=== PATIENT | female | born 1940 | race Caucasian/White ===

== ENCOUNTER 2018-07-10 07:46 | Emergency (ER) | payer MEDICARE, BC ==
--- NOTE | 2018-07-10 07:55 | EDM.PDOC ---
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 She states she was fine at 4 AM and noticed his first symptoms when she awoke at approximately 5:30 AM patient is currently on Plavix patient denies chest pain shortness of breath trauma or other concern Review of systems: As per history of present illness and below otherwise all systems reviewed and negative. Past medical history: As per history of present illness and as reviewed below otherwise noncontributory. Surgical history: As per history of present illness and as reviewed below otherwise noncontributory. Social history: No reported history of drug or alcohol abuse. Family history: As per history of present illness and as reviewed below otherwise noncontributory. Physical exam: HEENT: Atraumatic, normocephalic, pupils reactive, negative for conjunctival pallor or scleral icterus, mucous membranes moist, throat clear, neck supple, nontender, trachea midline. Lungs: Clear to auscultation, breath sounds equal bilaterally, chest nontender. Heart: S1S2, regular, negative for clicks, rubs, or JVD. Abdomen: Soft, nondistended, nontender. Negative for masses or hepatosplenomegaly. Negative for costovertebral tenderness. Pelvis: Stable nontender. Genitourinary: Deferred. Rectal: Deferred. Extremities: Atraumatic, negative for cords or calf pain. Neurovascular unremarkable. Neuro: Awake, alert, oriented. Patient is a dense paralysis left upper extremity and 4 out of 5 muscle strength in her left lower extremity with decreased sensory left upper and lower.. Diagnostics: CBC CMP troponin PT/INR chest x-ray EKG CT brain Therapeutics: IV O2 monitor Impression: #1 acute CVA Definitive disposition and diagnosis as appropriate pending reevaluation and review of above. - Related Data Allergies Allergy/AdvReac Type Severity Reaction Status Date / Time olmesartan medoxomil Allergy Arrhythmias Verified 05/18/14 10:58 [From Benicar] phenobarbital Allergy Tachycardia Verified 05/18/14 10:58 tramadol Allergy Cannot Verified 05/18/14 10:58 Remember Home Meds: Home Meds Aspirin [Ecotrin] 1 tab PO DAILY 05/18/14 [History] Cholecalciferol (Vitamin D3) [Vitamin D-3] 1 tab PO DAILY 05/18/14 [History] Clopidogrel Bisulfate [Clopidogrel] 1 tab PO DAILY 05/18/14 [History] Cyanocobalamin (Vitamin B-12) [Vitamin B-12] 1 tab PO DAILY 05/18/14 [History] Cyclobenzaprine HCl 1 tab PO ASDIRECTED PRN 05/18/14 [History] Flaxseed Oil [Flaxseed] 1 tab PO DAILY 05/18/14 [History] Hydrocodone/Acetaminophen [Hydrocodon-Acetaminophen 5-325] 1 tab PO ASDIRECTED PRN 05/18/14 [History] Krill/Om-3/DHA/EPA/Phospho/Ast [Krill Oil 1,000 mg Softgel] 1 tab PO DAILY 05/18 [History] Levothyroxine Sodium 1 tab PO ACBRK 05/18/14 [History] Magnesium 1 tab PO DAILY 05/18/14 [History] Multivitamin [Multi-Vitamin Daily] 1 tab PO DAILY 05/18/14 [History] Potassium Gluconate [Potassium] 99 mg PO DAILY 05/18/14 [History] Pravastatin [Pravachol] 1 tab PO DAILY 05/18/14 [History] Ubidecarenone [Co Q-10] 1 tab PO DAILY 05/18/14 [History] Valsartan [Diovan] 1 tab PO BRK 05/18/14 [History] amLODIPine [Norvasc] 1 tab PO BRK 05/18/14 [History] metFORMIN HCl [Metformin HCl ER] 1 tab PO ACDINNER 05/18/14 [History] ED ROS GENERAL - Review of Systems Review Of Systems: ROS reveals no pertinent complaints other than HPI. ED EXAM, GENERAL - Physical Exam Exam: See Below (See dictation) Departure - Departure Time of Disposition: 07:54 Disposition: DC/Tfer to Acute Hospital 02 Condition: Serious Clinical Impression: CVA (cerebral vascular accident) - Discharge Information Additional Instructions: []
--- NOTE | 2018-07-10 08:12 | CT ---
HISTORY: Stroke. TECHNIQUE: CT brain without contrast. COMPARISON: None. FINDINGS: No acute intracranial hemorrhage. No extra-axial collection. No mass effect or midline shift. Few scattered predominantly cortical calcifications throughout both hemispheres. Mild prominence of the sulci. Ventricular system is normal in caliber morphology. Cisterns are patent. Intracranial and extracranial arterial calcifications. Calvarium is intact. Imaged paranasal sinuses and mastoid air cells are clear. IMPRESSION: No acute intracranial abnormality. Please note that all CT scans at this facility use dose modulation, iterative reconstruction, and/or weight-based dosing when appropriate to reduce radiation dose to as low as reasonably achievable. Dictated by Dick Pelletier MD @ Jul 10 2018 8:05AM Signed by Dr. Dick Pelletier @ Jul 10 2018 8:11AM
[2018-07-10] MEDS ORDERED: Sodium Chloride 0.9% 2.5 ML Syringe FLUSH PRN (08:30)
[2018-07-10] MEDS ORDERED: Sodium Chloride 0.9% 10 ML SDV IV PRN (08:30)
[2018-07-10] MEDS ORDERED: Sodium Chloride 0.9% 10 ML Syringe FLUSH PRN (08:30)
[2018-07-10 09:12] LABS: CHLORIDE,CL 99 mmol/L (98-107); SODIUM,NA 132 mmol/L (136-145)
[2018-07-10 09:19] VITALS: BP 143/62
--- NOTE | 2018-07-10 09:22 | CR ---
EXAMINATION: Portable chest radiograph. HISTORY: Left arm paralysis. FINDINGS: The trachea is midline. There is a prominent of the right suprahilar region with adjacent 3.3 cm mass. The heart is otherwise normal in size. Mild interstitial prominence. No pleural effusion or pneumothorax. Osseous structures appear unremarkable. IMPRESSION: 1. There is a 3.3 cm right suprahilar mass with likely associated right hilar lymphadenopathy.
== END 2018-07-10 09:05 ==
LOC: MW.ED 07:46
DX: I63.9 Cerebral infarction, unspecified (principal); Z79.82 Long term (current) use of aspirin; Z79.899 Other long term (current) drug therapy; Z88.6 Allergy status to analgesic agent; Z88.8 Allergy status to other drugs, medicaments and biological substances
CPT/HCPCS: 36415; 70450; 70450-26; 71045; 71045-26; 80053; 81001; 84443; 84484; 85025; 85610; 85730; 87086; 93005; 99285-25

== ENCOUNTER 2018-08-22 14:37 | Observation (INO) | payer MEDICARE, BC ==
[2018-08-22] MEDS ORDERED: Sodium Chloride 0.9% 1,000 ML IV ONE (16:27)
--- NOTE | 2018-08-22 16:52 | EDM.PDOC ---
ED HPI GENERAL MEDICAL PROBLEM - General Chief Complaint: General Stated Complaint: NOSE BLEEDS X 1 WEEK, WEAKNESS Time Seen by Provider: 08/22/18 15:40 Source of Information: Reports: Patient History Limitations: Reports: No Limitations - History of Present Illness INITIAL COMMENTS - FREE TEXT/NARRATIVE: HISTORY AND PHYSICAL: History of present illness: Patient is an 78-year-old female presents to the ED today with concern of weakness following to nosebleed episodes. Patient states she had a nosebleed episode yesterday which lasted 4-6 hours before she got it to stop. Patient states there was quite a bit of blood loss yesterday. Patient states she had another episode of a nosebleed this morning that lasted about an hour. Patient states following these episodes she feels tired and run down. Patient states she was recently diagnosed with lung cancer but has not started treatment for chemotherapy for this. Patient states she supposed to start chemotherapy next week. Patient states she was on Xarelto for a stroke that occurred back in June. Patient states she was having issues with nosebleeds so her primary care at taken her office of the Xarelto in July. Patient denies any other symptoms or concerns at this time. Patient denies fever, chills, chest pain, shortness of breath, or cough. Denies headache, neck stiff ness, change in vision, syncope, or near syncope. Denies nausea, vomiting, abdominal pain, diarrhea, constipation, or dysuria. Has not noted any blood in urine or stool. Patient has been eating and drinking appropriately. Review of systems: As per history of present illness and below otherwise all systems reviewed and negative. Past medical history: As per history of present illness and as reviewed below otherwise noncontributory. Surgical history: As per history of present illness and as reviewed below otherwise noncontributory. Social history: See social history for further information Family history: As per history of present illness and as reviewed below otherwise noncontributory. Physical exam: General: Patient is alert, oriented, and in no acute distress. Patient sitting comfortably on exam table. HEENT: Atraumatic, normocephalic, pupils equal and reactive bilaterally, negative for conjunctival pallor or scleral icterus, mucous membranes dry, TMs normal bilaterally, throat clear, neck supple, nontender, trachea midline. No drooling or trismus noted. No meningeal signs. No hot potato voice noted. Lungs: Clear to auscultation, breath sounds equal bilaterally, chest nontender. Heart: S1S2, regular rate and rhythm without overt murmur Abdomen: Soft, nondistended, nontender. Negative for masses or hepatosplenomegaly. Negative for costovertebral tenderness. Pelvis: Stable nontender. Genitourinary: Deferred. Rectal: Deferred. Skin: Intact, warm, dry. No lesions or rashes noted. Patient does appear pale. Extremities: Atraumatic, negative for cords or calf pain. Neurovascular unremarkable. Neuro: Awake, alert, oriented. Cranial nerves II through XII unremarkable. Cerebellum unremarkable. Motor and sensory unremarkable throughout. Exam nonfocal. Notes: Dr. Carter verbally involved in patient care. Patient does have an elevated leukocytosis count but has had elevations of this in the past no labwork. Dr. Arnold was consulted on patient and will admit to observation. Voices understanding and is agreeable to plan of care. Denies any further questions or concerns at this time. Diagnostics: CBC, CMP, UA, chest x-ray, PT/INR, PTT, type and screen/cross Therapeutics: Saline, 1 unit packed RBC Impression: Symptomatic anemia Hyponatremia Leukocytosis Plan: 1. Admit to observation to Dr. Arnold Definitive disposition and diagnosis as appropriate pending reevaluation and review of above. headache Pain Score (Numeric/FACES): 5 - Related Data Allergies Allergy/AdvReac Type Severity Reaction Status Date / Time olmesartan medoxomil Allergy Arrhythmias Verified 07/10/18 08:19 [From Benicar] phenobarbital Allergy Tachycardia Verified 07/10/18 08:19 quinapril Allergy Cough Verified 08/22/18 15:03 tramadol Allergy Cannot Verified 07/10/18 08:19 Remember Home Meds: Home Meds Aspirin [Ecotrin] 3,325 mg PO DAILY 05/18/14 [History] Levothyroxine Sodium 88 mg PO ACBRK 05/18/14 [History] Pravastatin [Pravachol] 1 tab PO DAILY 05/18/14 [History] amLODIPine [Norvasc] 1 tab PO BRK 05/18/14 [History] metFORMIN HCl [Metformin HCl ER] 500 mg PO ACDINNER 05/18/14 [History] Folic Acid 1 mg PO DAILY 08/22/18 [History] Losartan [Cozaar] 100 mg PO DAILY 08/22/18 [History] Ondansetron [Zofran] 4 mg PO TID PRN 08/22/18 [History] Past Medical History Cardiovascular History: Reports: High Cholesterol, Hypertension Respiratory History: Reports: Asthma Gastrointestinal History: Reports: GERD Other Gastrointestinal History: stomach ulcers [employer] History: Reports: Neurological History: Reports: CVA, Migraines Endocrine/Metabolic History: Reports: Diabetes, Type II, Hypothyroidism - Infectious Disease History Infectious Disease History: Reports: Chicken Pox - Past Surgical History HEENT Surgical History: Reports: Cataract Surgery, Other (See Below) Other HEENT Surgeries/Procedures: wears glasses Cardiovascular Surgical History: Reports: Coronary Artery Stent, Other (See Below) Other Cardiovascular Surgeries/Procedures: has had carotid cleanout Female Surgical History: Reports: Hysterectomy Social & Family History - Family History Family Medical History: Noncontributory - Tobacco Use Smoking Status *Q: Former Smoker Used Tobacco, but Quit: Yes Month/Year Tobacco Last Used: 10 - Caffeine Use Caffeine Use: Reports: Coffee - Recreational Drug Use Recreational Drug Use: No ED ROS GENERAL - Review of Systems Review Of Systems: ROS reveals no pertinent complaints other than HPI. ED EXAM, GENERAL - Physical Exam Exam: See Below (See dictation) Course - Vital Signs Last Recorded V/S: Last Vital Signs Temp 36.4 C 08/22/18 14:58 Pulse 109 H 08/22/18 15:37 Resp 18 08/22/18 15:37 BP 129/63 08/22/18 15:37 Pulse Ox 98 08/22/18 15:37 - Orders/Labs/Meds Orders: Active Orders 24 hr Category Date Time Status Admission Status [Patient Status] [ADT] Stat ADT 08/22/18 16:40 Active EKG Documentation Completion [RC] STAT Care 08/22/18 15:40 Active Verify Patient Consent Obtain [RC] ASDIRECTED Care 08/22/18 16:30 Active Chest 1V Frontal [CR] Stat Exams 08/22/18 15:40 Taken RED BLOOD CELLS LP [BBK] Stat Lab 08/22/18 16:44 Received TYPE AND SCREEN [BBK] Stat Lab 08/22/18 16:44 Received UA RFX ODILIA AND CULT IF INDIC [URIN] Stat Lab 08/22/18 15:40 Ordered Sodium Chloride 0.9% [Normal Saline] 1,000 ml Med 08/22/18 16:27 Active IV STAT Transfuse Red Blood Cells [COMM] Stat Oth 08/22/18 16:30 Ordered Medication Orders Sodium Chloride (Normal Saline) 1,000 mls @ 500 mls/hr IV STAT ONE Stop: 08/22/18 18:26 Labs: Laboratory Tests 08/22/18 08/22/18 08/22/18 Range/Units 15:49 15:49 15:49 WBC 16.86 H (4.0-11.0) K/uL RBC 2.68 L (4.30-5.90) M/uL Hgb 6.9 L (12.0-16.0) g/dL Hct 21.7 L (36.0-46.0) % MCV 81.0 (80.0-98.0) fL MCH 25.7 L (27.0-32.0) pg MCHC 31.8 (31.0-37.0) g/dL RDW Std Deviation 43.8 (28.0-62.0) fl RDW Coeff of Keny 15 (11.0-15.0) % Plt Count 425 H (150-400) K/uL MPV 8.90 (7.40-12.00) fL Neut % (Auto) 57.9 (48.0-80.0) % Lymph % (Auto) 34.9 (16.0-40.0) % Davis % (Auto) 6.3 (0.0-15.0) % Eos % (Auto) 0.7 (0.0-7.0) % Baso % (Auto) 0.2 (0.0-1.5) % Neut # (Auto) 9.8 H (1.4-5.7) K/uL Lymph # (Auto) 5.9 H (0.6-2.4) K/uL Davis # (Auto) 1.1 H (0.0-0.8) K/uL Eos # (Auto) 0.1 (0.0-0.7) K/uL Baso # (Auto) 0.0 (0.0-0.1) K/uL Nucleated RBC % 0.0 /100WBC Nucleated RBCs # 0 K/uL INR 0.96 APTT (18.6-31.3) SEC Sodium 127 L (136-145) mmol/L Potassium 4.5 (3.5-5.1) mmol/L Chloride 96 L (98-107) mmol/L Carbon Dioxide 22.2 (21.0-32.0) mmol/L BUN 16 (7.0-18.0) mg/dL Creatinine 1.4 H (0.6-1.0) mg/dL Est Cr Clr Drug Dosing 25.35 mL/min Estimated GFR (MDRD) 36.2 ml/min Glucose 126 H (74-106) mg/dL Calcium 8.7 (8.5-10.1) mg/dL Total Bilirubin 0.4 (0.2-1.0) mg/dL AST 12 L (15-37) IU/L ALT 11 L (14-63) IU/L Alkaline Phosphatase 74 (46-116) U/L Total Protein 6.2 L (6.4-8.2) g/dL Albumin 3.0 L (3.4-5.0) g/dL Globulin 3.2 (2.6-4.0) g/dL Albumin/Globulin Ratio 0.9 (0.9-1.6) 08/22/18 Range/Units 15:49 WBC (4.0-11.0) K/uL RBC (4.30-5.90) M/uL Hgb (12.0-16.0) g/dL Hct (36.0-46.0) % MCV (80.0-98.0) fL MCH (27.0-32.0) pg MCHC (31.0-37.0) g/dL RDW Std Deviation (28.0-62.0) fl RDW Coeff of Keny (11.0-15.0) % Plt Count (150-400) K/uL MPV (7.40-12.00) fL Neut % (Auto) (48.0-80.0) % Lymph % (Auto) (16.0-40.0) % Davis % (Auto) (0.0-15.0) % Eos % (Auto) (0.0-7.0) % Baso % (Auto) (0.0-1.5) % Neut # (Auto) (1.4-5.7) K/uL Lymph # (Auto) (0.6-2.4) K/uL Davis # (Auto) (0.0-0.8) K/uL Eos # (Auto) (0.0-0.7) K/uL Baso # (Auto) (0.0-0.1) K/uL Nucleated RBC % /100WBC Nucleated RBCs # K/uL INR APTT 25.9 (18.6-31.3) SEC Sodium (136-145) mmol/L Potassium (3.5-5.1) mmol/L Chloride (98-107) mmol/L Carbon Dioxide (21.0-32.0) mmol/L BUN (7.0-18.0) mg/dL Creatinine (0.6-1.0) mg/dL Est Cr Clr Drug Dosing mL/min Estimated GFR (MDRD) ml/min Glucose (74-106) mg/dL Calcium (8.5-10.1) mg/dL Total Bilirubin (0.2-1.0) mg/dL AST (15-37) IU/L ALT (14-63) IU/L Alkaline Phosphatase (46-116) U/L Total Protein (6.4-8.2) g/dL Albumin (3.4-5.0) g/dL Globulin (2.6-4.0) g/dL Albumin/Globulin Ratio (0.9-1.6) Meds: Medications Generic Name Dose Route Start Last Admin Trade Name Freq PRN Reason Stop Dose Admin Sodium Chloride 1,000 mls @ 500 mls/hr 08/22/18 16:27 Normal Saline IV 08/22/18 18:26 STAT ONE Departure - Departure Time of Disposition: 16:52 Disposition: Refer to Observation Clinical Impression: Hyponatremia Anemia Qualifiers: Anemia type: unspecified type Qualified Code(s): D64.9 - Anemia, unspecified Leukocytosis Qualifiers: Leukocytosis type: unspecified Qualified Code(s): D72.829 - Elevated white blood cell count, unspecified - Discharge Information - My Orders Last 24 Hours: My Active Orders 08/22/18 15:40 EKG Documentation Completion [RC] STAT Chest 1V Frontal [CR] Stat UA RFX ODILIA AND CULT IF INDIC [URIN] Stat 08/22/18 16:27 Sodium Chloride 0.9% [Normal Saline] 1,000 ml IV STAT 08/22/18 16:30 Verify Patient Consent Obtain [RC] ASDIRECTED Transfuse Red Blood Cells [COMM] Stat 08/22/18 16:40 Admission Status [Patient Status] [ADT] Stat 08/22/18 16:44 RED BLOOD CELLS LP [BBK] Stat TYPE AND SCREEN [BBK] Stat - Assessment/Plan Last 24 Hours: My Active Orders 08/22/18 15:40 EKG Documentation Completion [RC] STAT Chest 1V Frontal [CR] Stat UA RFX ODILIA AND CULT IF INDIC [URIN] Stat 08/22/18 16:27 Sodium Chloride 0.9% [Normal Saline] 1,000 ml IV STAT 08/22/18 16:30 Verify Patient Consent Obtain [RC] ASDIRECTED Transfuse Red Blood Cells [COMM] Stat 08/22/18 16:40 Admission Status [Patient Status] [ADT] Stat 08/22/18 16:44 RED BLOOD CELLS LP [BBK] Stat TYPE AND SCREEN [BBK] Stat
--- NOTE | 2018-08-22 17:33 | CR ---
INDICATION: Weak TECHNIQUE: Portable AP radiograph of the chest. COMPARISON: Chest radiograph 07/10/2018 FINDINGS: Cardiomediastinal silhouette: Within normal limits. Lungs and pleural spaces: There is an approximately 3 cm masslike opacity projecting over the right upper lung zone. Right perihilar fullness may be related to right hilar lymphadenopathy. Left lung is clear. No pleural effusions. No pneumothorax. IMPRESSION: 3 cm masslike opacity projecting over the right upper lung zone with right perihilar fullness, suspicious for hilar lymphadenopathy. Recommend CT chest with contrast for further evaluation. Dictated by Pao Moore MD @ 08/22/2018 5:32:04 PM Dictated by: Pao Moore MD @ 08/22/2018 17:32:19 (Electronically Signed)
--- NOTE | 2018-08-22 17:54 | PCM.HP ---
H&P History of Present Illness - General Date of Service: 08/22/18 Admit Problem/Dx: Admission Diagnosis/Problem Admission Diagnosis/Problem Anemia - History of Present Illness Initial Comments - Free Text/Narative: 78 yo female who last june was hospitalized for a CVA. She was discovered to have lung cancer and was placed on Eliquis. She reports she did have a nose bleed last week. She was switch by Dr. Alaniz from Eliquis back to plavix and ASA. She has three nose bleeds in the past 24 hours. She called [facility] and they instructed her to present to the ED. She reports generalized weakness that worsens with every bleed. Her Hgb was noted to be 6.9. She reports a history of carotid endarterectomy and CAD with stents which were placed several years ago. headache Pain Score (Numeric/FACES): 5 - Related Data Allergies/Adverse Reactions: Allergies Allergy/AdvReac Type Severity Reaction Status Date / Time olmesartan medoxomil Allergy Arrhythmias Verified 07/10/18 08:19 [From Patricia] phenobarbital Allergy Tachycardia Verified 07/10/18 08:19 quinapril Allergy Cough Verified 08/22/18 15:03 tramadol Allergy Cannot Verified 07/10/18 08:19 Remember Home Medications: Home Meds Aspirin [Ecotrin] 3,325 mg PO DAILY 05/18/14 [History] Levothyroxine Sodium 88 mg PO ACBRK 05/18/14 [History] Pravastatin [Pravachol] 1 tab PO DAILY 05/18/14 [History] amLODIPine [Norvasc] 1 tab PO BRK 05/18/14 [History] metFORMIN HCl [Metformin HCl ER] 500 mg PO ACDINNER 05/18/14 [History] Folic Acid 1 mg PO DAILY 08/22/18 [History] Losartan [Cozaar] 100 mg PO DAILY 08/22/18 [History] Ondansetron [Zofran] 4 mg PO TID PRN 08/22/18 [History] Past Medical History Cardiovascular History: Reports: High Cholesterol, Hypertension Respiratory History: Reports: Asthma Gastrointestinal History: Reports: GERD Other Gastrointestinal History: stomach ulcers [employer] VUL[employer]ER History: Reports: Neurological History: Reports: CVA, Migraines Endocrine/Metabolic History: Reports: Diabetes, Type II, Hypothyroidism - Infectious Disease History Infectious Disease History: Reports: Chicken Pox - Past Surgical History HEENT Surgical History: Reports: Cataract Surgery, Other (See Below) Other HEENT Surgeries/Procedures: wears glasses Cardiovascular Surgical History: Reports: Coronary Artery Stent, Other (See Below) Other Cardiovascular Surgeries/Procedures: has had carotid cleanout Female Surgical History: Reports: Hysterectomy Social & Family History - Family History Family Medical History: Noncontributory - Tobacco Use Smoking Status *Q: Former Smoker Used Tobacco, but Quit: Yes Month/Year Tobacco Last Used: 10 - Caffeine Use Caffeine Use: Reports: Coffee - Recreational Drug Use Recreational Drug Use: No H&P Review of Systems - Review of Systems: Review Of Systems: ROS reveals no pertinent complaints other than HPI. Exam - Exam Exam: See Below - Vital Signs Vital Signs: Last Vital Signs Temp 36.4 C 08/22/18 14:58 Pulse 106 H 08/22/18 17:25 Resp 18 08/22/18 17:25 BP 130/62 08/22/18 17:25 Pulse Ox 97 08/22/18 17:25 Weight: 66.678 kg - Exam General: Alert, Oriented HEENT: Mucosa Moist & [place] Lungs: Clear to Auscultation, Normal Respiratory Effort Cardiovascular: Regular Rate, Regular Rhythm GI/Abdominal Exam: Soft, Non-Tender Extremities: Non-Tender, No Pedal Edema Skin: Warm, Dry, Intact - Patient Data Lab Results Last 24 hrs: Laboratory Results - last 24 hr 08/22/18 08/22/18 08/22/18 Range/Units 15:49 15:49 15:49 WBC 16.86 H (4.0-11.0) K/uL RBC 2.68 L (4.30-5.90) M/uL Hgb 6.9 L (12.0-16.0) g/dL Hct 21.7 L (36.0-46.0) % MCV 81.0 (80.0-98.0) fL MCH 25.7 L (27.0-32.0) pg MCHC 31.8 (31.0-37.0) g/dL RDW Std Deviation 43.8 (28.0-62.0) fl RDW Coeff of Keny 15 (11.0-15.0) % Plt Count 425 H (150-400) K/uL MPV 8.90 (7.40-12.00) fL Neut % (Auto) 57.9 (48.0-80.0) % Lymph % (Auto) 34.9 (16.0-40.0) % Haines % (Auto) 6.3 (0.0-15.0) % Eos % (Auto) 0.7 (0.0-7.0) % Baso % (Auto) 0.2 (0.0-1.5) % Neut # (Auto) 9.8 H (1.4-5.7) K/uL Lymph # (Auto) 5.9 H (0.6-2.4) K/uL Haines # (Auto) 1.1 H (0.0-0.8) K/uL Eos # (Auto) 0.1 (0.0-0.7) K/uL Baso # (Auto) 0.0 (0.0-0.1) K/uL Nucleated RBC % 0.0 /100WBC Nucleated RBCs # 0 K/uL INR 0.96 APTT (18.6-31.3) SEC Sodium 127 L (136-145) mmol/L Potassium 4.5 (3.5-5.1) mmol/L Chloride 96 L (98-107) mmol/L Carbon Dioxide 22.2 (21.0-32.0) mmol/L BUN 16 (7.0-18.0) mg/dL Creatinine 1.4 H (0.6-1.0) mg/dL Est Cr Clr Drug Dosing 25.35 mL/min Estimated GFR (MDRD) 36.2 ml/min Glucose 126 H (74-106) mg/dL Calcium 8.7 (8.5-10.1) mg/dL Total Bilirubin 0.4 (0.2-1.0) mg/dL AST 12 L (15-37) IU/L ALT 11 L (14-63) IU/L Alkaline Phosphatase 74 (46-116) U/L Total Protein 6.2 L (6.4-8.2) g/dL Albumin 3.0 L (3.4-5.0) g/dL Globulin 3.2 (2.6-4.0) g/dL Albumin/Globulin Ratio 0.9 (0.9-1.6) 08/22/18 Range/Units 15:49 WBC (4.0-11.0) K/uL RBC (4.30-5.90) M/uL Hgb (12.0-16.0) g/dL Hct (36.0-46.0) % MCV (80.0-98.0) fL MCH (27.0-32.0) pg MCHC (31.0-37.0) g/dL RDW Std Deviation (28.0-62.0) fl RDW Coeff of Keny (11.0-15.0) % Plt Count (150-400) K/uL MPV (7.40-12.00) fL Neut % (Auto) (48.0-80.0) % Lymph % (Auto) (16.0-40.0) % Haines % (Auto) (0.0-15.0) % Eos % (Auto) (0.0-7.0) % Baso % (Auto) (0.0-1.5) % Neut # (Auto) (1.4-5.7) K/uL Lymph # (Auto) (0.6-2.4) K/uL Haines # (Auto) (0.0-0.8) K/uL Eos # (Auto) (0.0-0.7) K/uL Baso # (Auto) (0.0-0.1) K/uL Nucleated RBC % /100WBC Nucleated RBCs # K/uL INR APTT 25.9 (18.6-31.3) SEC Sodium (136-145) mmol/L Potassium (3.5-5.1) mmol/L Chloride (98-107) mmol/L Carbon Dioxide (21.0-32.0) mmol/L BUN (7.0-18.0) mg/dL Creatinine (0.6-1.0) mg/dL Est Cr Clr Drug Dosing mL/min Estimated GFR (MDRD) ml/min Glucose (74-106) mg/dL Calcium (8.5-10.1) mg/dL Total Bilirubin (0.2-1.0) mg/dL AST (15-37) IU/L ALT (14-63) IU/L Alkaline Phosphatase (46-116) U/L Total Protein (6.4-8.2) g/dL Albumin (3.4-5.0) g/dL Globulin (2.6-4.0) g/dL Albumin/Globulin Ratio (0.9-1.6) Result Diagrams: 08/22/18 15:49 08/22/18 15:49 Problem List Initiated/Reviewed/Updated: Yes Orders Last 24hrs: Active Orders 24 hr Category Date Time Status Admission Status [Patient Status] [ADT] Stat ADT 08/22/18 16:40 Active Antiembolic Devices [RC] PER UNIT ROUTINE Care 08/22/18 17:48 Ordered EKG Documentation Completion [RC] STAT Care 08/22/18 15:40 Active Oxygen Therapy [RC] PRN Care 08/22/18 17:48 Ordered Telemetry Monitoring [Cardiac Monitoring] [RC] . Care 08/22/18 17:24 Active DIRECTED Up ad Esther [RC] ASDIRECTED Care 08/22/18 17:47 Ordered VTE/DVT Education [RC] PER UNIT ROUTINE Care 08/22/18 17:48 Ordered Verify Patient Consent Obtain [RC] ASDIRECTED Care 08/22/18 16:30 Active Vital Signs [RC] Q4H Care 08/22/18 17:48 Ordered Regular Diet [DIET] Diet 08/22/18 Breakfast Ordered BASIC METABOLIC PANEL,BMP [CHEM] AM Lab 08/23/18 05:11 Ordered CBC WITH AUTO DIFF [HEME] AM Lab 08/23/18 05:11 Ordered RED BLOOD CELLS LP [BBK] Stat Lab 08/22/18 16:44 Received TYPE AND SCREEN [BBK] Stat Lab 08/22/18 16:44 Received UA RFX ODILIA AND CULT IF INDIC [URIN] Stat Lab 08/22/18 15:40 Ordered Levothyroxine [Synthroid] Med 08/23/18 07:30 Ordered 88,000 mcg PO ACBRK Losartan Med 08/23/18 09:00 Ordered 100 mg PO DAILY Pravastatin Med 08/23/18 09:00 Ordered 1 tab PO DAILY Sodium Chloride 0.9% [Normal Saline] 1,000 ml Med 08/22/18 16:27 Active IV STAT amLODIPine [Norvasc] Med 08/23/18 08:00 Ordered 5 mg PO BRK metFORMIN HCl [Metformin ER Osmotic] Med 08/23/18 17:00 Ordered 500 mg PO ACDINNER Sequential Compression Device [OM.PC] Per Unit Routine Oth 08/22/18 17:48 Ordered Transfuse Red Blood Cells [COMM] Stat Ot 08/22/18 16:30 Ordered Transfuse Red Blood Cells [COMM] Stat Ot 08/22/18 17:46 Ordered Resuscitation Status Routine Resus Stat 08/22/18 17:47 Ordered Medication Orders Amlodipine Besylate (Norvasc) 5 mg PO BRK [facility] Sodium Chloride (Normal Saline) 1,000 mls @ 500 mls/hr IV STAT ONE Stop: 08/22/18 18:26 Last Admin: 08/22/18 16:48 Dose: 500 mls/hr Levothyroxine Sodium (Synthroid) 88,000 mcg PO ACBRK [facility] Non-Formulary Medication (Losartan) 100 mg PO DAILY [facility] Non-Formulary Medication (Metformin Hcl [Metformin Er Osmotic]) 500 mg PO ACDINNER [facility] Non-Formulary Medication (Pravastatin) 1 tab PO DAILY [facility] Assessment/Plan Comment:: 78 yo female admitted for anemia from acute blood loss due to nose bleed. She is not currently bleeding. We will transfuse two units of blood and hold her plavix and aspirin for tonight.
[2018-08-22] MEDS ORDERED: cefTRIAXone 1 GM in Sodium Chloride 0.9% 50 ML IV SCH (20:00)
[2018-08-22] MEDS ORDERED: Acetaminophen 325 MG Tab PO PRN (20:49)
[2018-08-22] MEDS ORDERED: cefTRIAXone 1 GM in Premix Bag 1 BAG IV SCH ×3 (21:00→21:15)
[2018-08-23] MEDS ORDERED: Insulin Aspart 100 Units/ML 3 ML Pen SUBCUT SCH (07:30)
[2018-08-23] MEDS ORDERED: Levothyroxine 88 MCG Tab PO SCH ×2 (07:30→08:30)
[2018-08-23] MEDS ORDERED: Levothyroxine 88 MCG Tab ONE (07:52)
[2018-08-23] MEDS ORDERED: amLODIPine 5 MG Tab PO SCH ×2 (08:00→09:00)
--- NOTE | 2018-08-23 08:14 | PCM.DCSUM1 ---
Discharge Summary - Discharge Data Discharge Date: 08/23/18 Discharge Disposition: Home, Self-Care 01 Condition: Good - Patient Summary/Data Hospital Course: 78 yo female who was admitted for anemia from acute blood loss following several nose bleeds. She reported symptoms of generalized weakness and lightheadedness. She is on Plavix and ASA for her history of CAD, CVA and carotid disease. Lab work was significant for a Hgb of 6.6, sodium of 127 and creatinine of 1.4. She was transfuse two units with a rise of Hgb to 9.4 and sodium to 135. This morning her symptoms have resolved and she is requesting discharge home. She is to follow up with her matcher operator next week and her primary care provider. - Discharge Plan Prescriptions/Med Rec: Cephalexin [Keflex] 500 mg PO BID #10 capsule Home Medications: Home Meds Levothyroxine Sodium 88 mcg PO ACBRK 05/18/14 [History] Pravastatin [Pravachol] 1 tab PO DAILY 05/18/14 [History] amLODIPine [Norvasc] 1 tab PO BRK 05/18/14 [History] metFORMIN HCl [Metformin ER Osmotic] 500 mg PO ACDINNER 05/18/14 [History] Folic Acid 1 mg PO DAILY 08/22/18 [History] Losartan [Cozaar] 100 mg PO DAILY 08/22/18 [History] Cephalexin [Keflex] 500 mg PO BID #10 capsule 08/23/18 [Rx] - Discharge Summary/Plan Comment DC Time >30 min.: No - Patient Data Vitals - Most Recent: Last Vital Signs Temp 36.1 C 08/23/18 07:49 Pulse 93 08/23/18 07:49 Resp 18 08/23/18 07:49 BP 115/45 L 08/23/18 07:49 Pulse Ox 94 L 08/23/18 07:49 Weight - Most Recent: 66.678 kg I&O - Last 24 hours: Intake & Output 08/22/18 08/23/18 08/23/18 22:59 06:59 14:59 Intake Total 400 993 Output Total 1600 Balance 400 -607 Lab Results - Last 24 hrs: Laboratory Results - last 24 hr 08/22/18 08/22/18 08/22/18 Range/Units 15:49 15:49 15:49 WBC 16.86 H (4.0-11.0) K/uL RBC 2.68 L (4.30-5.90) M/uL Hgb 6.9 L (12.0-16.0) g/dL Hct 21.7 L (36.0-46.0) % MCV 81.0 (80.0-98.0) fL MCH 25.7 L (27.0-32.0) pg MCHC 31.8 (31.0-37.0) g/dL RDW Std Deviation 43.8 (28.0-62.0) fl RDW Coeff of Keny 15 (11.0-15.0) % Plt Count 425 H (150-400) K/uL MPV 8.90 (7.40-12.00) fL Neut % (Auto) 57.9 (48.0-80.0) % Lymph % (Auto) 34.9 (16.0-40.0) % [place]ger % (Auto) 6.3 (0.0-15.0) % Eos % (Auto) 0.7 (0.0-7.0) % Baso % (Auto) 0.2 (0.0-1.5) % Neut # (Auto) 9.8 H (1.4-5.7) K/uL Lymph # (Auto) 5.9 H (0.6-2.4) K/uL [place]ger # (Auto) 1.1 H (0.0-0.8) K/uL Eos # (Auto) 0.1 (0.0-0.7) K/uL Baso # (Auto) 0.0 (0.0-0.1) K/uL Nucleated RBC % 0.0 /100WBC Nucleated RBCs # 0 K/uL INR 0.96 APTT (18.6-31.3) SEC Sodium 127 L (136-145) mmol/L Potassium 4.5 (3.5-5.1) mmol/L Chloride 96 L (98-107) mmol/L Carbon Dioxide 22.2 (21.0-32.0) mmol/L BUN 16 (7.0-18.0) mg/dL Creatinine 1.4 H (0.6-1.0) mg/dL Est Cr Clr Drug Dosing 25.35 mL/min Estimated GFR (MDRD) 36.2 ml/min Glucose 126 H (74-106) mg/dL POC Glucose (60-110) mg/dL Calcium 8.7 (8.5-10.1) mg/dL Total Bilirubin 0.4 (0.2-1.0) mg/dL AST 12 L (15-37) IU/L ALT 11 L (14-63) IU/L Alkaline Phosphatase 74 (46-116) U/L Total Protein 6.2 L (6.4-8.2) g/dL Albumin 3.0 L (3.4-5.0) g/dL Globulin 3.2 (2.6-4.0) g/dL Albumin/Globulin Ratio 0.9 (0.9-1.6) Urine Color Urine Appearance Urine pH (5.0-8.0) Ur Specific Newcomb (1.001-1.035) Urine Protein (NEGATIVE) mg/dL Urine Glucose (UA) (NEGATIVE) mg/dL Urine Ketones (NEGATIVE) mg/dL Urine Occult Blood (NEGATIVE) Urine Nitrite (NEGATIVE) Urine Bilirubin (NEGATIVE) Urine Urobilinogen (<2.0) EU/dL Ur Leukocyte Esterase (NEGATIVE) Urine RBC (0-2/HPF) Urine WBC (0-5/HPF) Ur Epithelial Cells (NONE-FEW) Urine Bacteria (NEGATIVE) Blood Type Antibody Screen Crossmatch 08/22/18 08/22/18 08/22/18 Range/Units 15:49 16:44 17:45 WBC (4.0-11.0) K/uL RBC (4.30-5.90) M/uL Hgb (12.0-16.0) g/dL Hct (36.0-46.0) % MCV (80.0-98.0) fL MCH (27.0-32.0) pg MCHC (31.0-37.0) g/dL RDW Std Deviation (28.0-62.0) fl RDW Coeff of Keny (11.0-15.0) % Plt Count (150-400) K/uL MPV (7.40-12.00) fL Neut % (Auto) (48.0-80.0) % Lymph % (Auto) (16.0-40.0) % [place]barger % (Auto) (0.0-15.0) % Eos % (Auto) (0.0-7.0) % Baso % (Auto) (0.0-1.5) % Neut # (Auto) (1.4-5.7) K/uL Lymph # (Auto) (0.6-2.4) K/uL [place]ger # (Auto) (0.0-0.8) K/uL Eos # (Auto) (0.0-0.7) K/uL Baso # (Auto) (0.0-0.1) K/uL Nucleated RBC % /100WBC Nucleated RBCs # K/uL INR APTT 25.9 (18.6-31.3) SEC Sodium (136-145) mmol/L Potassium (3.5-5.1) mmol/L Chloride (98-107) mmol/L Carbon Dioxide (21.0-32.0) mmol/L BUN (7.0-18.0) mg/dL Creatinine (0.6-1.0) mg/dL Est Cr Clr Drug Dosing mL/min Estimated GFR (MDRD) ml/min Glucose (74-106) mg/dL POC Glucose (60-110) mg/dL Calcium (8.5-10.1) mg/dL Total Bilirubin (0.2-1.0) mg/dL AST (15-37) IU/L ALT (14-63) IU/L Alkaline Phosphatase (46-116) U/L Total Protein (6.4-8.2) g/dL Albumin (3.4-5.0) g/dL Globulin (2.6-4.0) g/dL Albumin/Globulin Ratio (0.9-1.6) Urine Color YELLOW Urine Appearance HAZY Urine pH 5.5 (5.0-8.0) Ur Specific Newcomb <= 1.005 (1.001-1.035) Urine Protein NEGATIVE (NEGATIVE) mg/dL Urine Glucose (UA) NEGATIVE (NEGATIVE) mg/dL Urine Ketones NEGATIVE (NEGATIVE) mg/dL Urine Occult Blood NEGATIVE (NEGATIVE) Urine Nitrite NEGATIVE (NEGATIVE) Urine Bilirubin NEGATIVE (NEGATIVE) Urine Urobilinogen 0.2 (<2.0) EU/dL Ur Leukocyte Esterase MODERATE H (NEGATIVE) Urine RBC NONE SEEN (0-2/HPF) Urine WBC 5-8 (0-5/HPF) Ur Epithelial Cells RARE (NONE-FEW) Urine Bacteria RARE (NEGATIVE) Blood Type O POSITIVE Antibody Screen NEGATIVE Crossmatch See Detail 08/22/18 08/23/18 08/23/18 Range/Units 21:14 04:15 04:15 WBC 14.12 H (4.0-11.0) K/uL RBC 3.45 L (4.30-5.90) M/uL Hgb 9.4 L (12.0-16.0) g/dL Hct 28.3 L (36.0-46.0) % MCV 82.0 (80.0-98.0) fL MCH 27.2 (27.0-32.0) pg MCHC 33.2 (31.0-37.0) g/dL RDW Std Deviation 44.0 (28.0-62.0) fl RDW Coeff of Keny 15 (11.0-15.0) % Plt Count 332 (150-400) K/uL MPV 9.10 (7.40-12.00) fL Neut % (Auto) 56.1 (48.0-80.0) % Lymph % (Auto) 36.1 (16.0-40.0) % [place]barger % (Auto) 6.5 (0.0-15.0) % Eos % (Auto) 1.1 (0.0-7.0) % Baso % (Auto) 0.2 (0.0-1.5) % Neut # (Auto) 7.9 H (1.4-5.7) K/uL Lymph # (Auto) 5.1 H (0.6-2.4) K/uL Wil[place]ger # (Auto) 0.9 H (0.0-0.8) K/uL Eos # (Auto) 0.2 (0.0-0.7) K/uL Baso # (Auto) 0.0 (0.0-0.1) K/uL Nucleated RBC % 0.0 /100WBC Nucleated RBCs # 0 K/uL INR APTT (18.6-31.3) SEC Sodium 135 L (136-145) mmol/L Potassium 4.2 (3.5-5.1) mmol/L Chloride 103 (98-107) mmol/L Carbon Dioxide 23.9 (21.0-32.0) mmol/L BUN 14 (7.0-18.0) mg/dL Creatinine 1.1 H (0.6-1.0) mg/dL Est Cr Clr Drug Dosing 32.26 mL/min Estimated GFR (MDRD) 47.8 ml/min Glucose 102 (74-106) mg/dL POC Glucose 114 H (60-110) mg/dL Calcium 8.0 L (8.5-10.1) mg/dL Total Bilirubin (0.2-1.0) mg/dL AST (15-37) IU/L ALT (14-63) IU/L Alkaline Phosphatase (46-116) U/L Total Protein (6.4-8.2) g/dL Albumin (3.4-5.0) g/dL Globulin (2.6-4.0) g/dL Albumin/Globulin Ratio (0.9-1.6) Urine Color Urine Appearance Urine pH (5.0-8.0) Ur Specific Newcomb (1.001-1.035) Urine Protein (NEGATIVE) mg/dL Urine Glucose (UA) (NEGATIVE) mg/dL Urine Ketones (NEGATIVE) mg/dL Urine Occult Blood (NEGATIVE) Urine Nitrite (NEGATIVE) Urine Bilirubin (NEGATIVE) Urine Urobilinogen (<2.0) EU/dL Ur Leukocyte Esterase (NEGATIVE) Urine RBC (0-2/HPF) Urine WBC (0-5/HPF) Ur Epithelial Cells (NONE-FEW) Urine Bacteria (NEGATIVE) Blood Type Antibody Screen Crossmatch 08/23/18 Range/Units 06:36 WBC (4.0-11.0) K/uL RBC (4.30-5.90) M/uL Hgb (12.0-16.0) g/dL Hct (36.0-46.0) % MCV (80.0-98.0) fL MCH (27.0-32.0) pg MCHC (31.0-37.0) g/dL RDW Std Deviation (28.0-62.0) fl RDW Coeff of Keny (11.0-15.0) % Plt Count (150-400) K/uL MPV (7.40-12.00) fL Neut % (Auto) (48.0-80.0) % Lymph % (Auto) (16.0-40.0) % Wilbarger % (Auto) (0.0-15.0) % Eos % (Auto) (0.0-7.0) % Baso % (Auto) (0.0-1.5) % Neut # (Auto) (1.4-5.7) K/uL Lymph # (Auto) (0.6-2.4) K/uL [place]ger # (Auto) (0.0-0.8) K/uL Eos # (Auto) (0.0-0.7) K/uL Baso # (Auto) (0.0-0.1) K/uL Nucleated RBC % /100WBC Nucleated RBCs # K/uL INR APTT (18.6-31.3) SEC Sodium (136-145) mmol/L Potassium (3.5-5.1) mmol/L Chloride (98-107) mmol/L Carbon Dioxide (21.0-32.0) mmol/L BUN (7.0-18.0) mg/dL Creatinine (0.6-1.0) mg/dL Est Cr Clr Drug Dosing mL/min Estimated GFR (MDRD) ml/min Glucose (74-106) mg/dL POC Glucose 99 (60-110) mg/dL Calcium (8.5-10.1) mg/dL Total Bilirubin (0.2-1.0) mg/dL AST (15-37) IU/L ALT (14-63) IU/L Alkaline Phosphatase (46-116) U/L Total Protein (6.4-8.2) g/dL Albumin (3.4-5.0) g/dL Globulin (2.6-4.0) g/dL Albumin/Globulin Ratio (0.9-1.6) Urine Color Urine Appearance Urine pH (5.0-8.0) Ur Specific Newcomb (1.001-1.035) Urine Protein (NEGATIVE) mg/dL Urine Glucose (UA) (NEGATIVE) mg/dL Urine Ketones (NEGATIVE) mg/dL Urine Occult Blood (NEGATIVE) Urine Nitrite (NEGATIVE) Urine Bilirubin (NEGATIVE) Urine Urobilinogen (<2.0) EU/dL Ur Leukocyte Esterase (NEGATIVE) Urine RBC (0-2/HPF) Urine WBC (0-5/HPF) Ur Epithelial Cells (NONE-FEW) Urine Bacteria (NEGATIVE) Blood Type Antibody Screen Crossmatch Med Orders - Current: Current Medications Acetaminophen (Tylenol) 650 mg PO Q6H PRN PRN Reason: Pain (mild 1-3) Last Admin: 08/22/18 21:01 Dose: 650 mg Amlodipine Besylate (Norvasc) 5 mg PO BRK [facility] Ceftriaxone Sodium/Dextrose 1 (gm/ Premix) 50 mls @ 100 mls/hr IV Q24H [facility] Last Admin: 08/22/18 22:17 Dose: 100 mls/hr Insulin Aspart (Novolog) 0 unit SUBCUT TIDAC [facility]; Protocol Levothyroxine Sodium (Synthroid) 88,000 mcg PO ACBRK [facility] Non-Formulary Medication (Losartan) 100 mg PO DAILY [facility] Non-Formulary Medication (Metformin Hcl [Metformin Er Osmotic]) 500 mg PO ACDINNER [facility] Non-Formulary Medication (Pravastatin) 1 tab PO DAILY [facility] Discontinued Medications Sodium Chloride (Normal Saline) 1,000 mls @ 500 mls/hr IV STAT ONE Stop: 08/22/18 18:26 Last Admin: 08/22/18 16:48 Dose: 500 mls/hr Ceftriaxone Sodium 1 gm/ (Sodium Chloride) 50 mls @ 100 mls/hr IV Q24H [facility] Last Admin: 08/22/18 21:05 Dose: Not Given Ceftriaxone Sodium/Dextrose 1 (gm/ Premix) 50 mls @ 100 mls/hr IV Q24H [facility] Ceftriaxone Sodium/Dextrose 1 (gm/ Premix) 50 mls @ 100 mls/hr IV Q24H [facility] Levothyroxine Sodium (Synthroid) Confirm Administered Dose 88 mcg .ROUTE .STK- MED ONE Stop: 08/23/18 07:53
[2018-08-23 08:54] VITALS: BP 115/54
[2018-08-23] MEDS ORDERED: Pravastatin 40 MG Tab PO SCH (09:00)
[2018-08-23] MEDS ORDERED: Losartan 50 MG Tab PO SCH (09:00)
[2018-08-23] MEDS ORDERED: metFORMIN 500 MG Tab.ER PO SCH (17:00)
== END 2018-08-23 09:20 | disposition home or self-care (01) ==
LOC: MW.ED 14:37 → MW.MS 17:10
PROVIDERS: ADMIT Internal Medicine; ATTEND Internal Medicine
DX: D62 Acute posthemorrhagic anemia (principal); R04.0 Epistaxis; I25.10 Atherosclerotic heart disease of native coronary artery without angina pectoris; E78.00 Pure hypercholesterolemia, unspecified; I10 Essential (primary) hypertension; J45.909 Unspecified asthma, uncomplicated; K21.9 Gastro-esophageal reflux disease without esophagitis; E11.9 Type 2 diabetes mellitus without complications; E03.9 Hypothyroidism, unspecified; Z86.73 Personal history of transient ischemic attack (TIA), and cerebral infarction without residual deficits; Z87.891 Personal history of nicotine dependence; Z79.82 Long term (current) use of aspirin; Z88.6 Allergy status to analgesic agent; Z88.8 Allergy status to other drugs, medicaments and biological substances; Z79.84 Long term (current) use of oral hypoglycemic drugs; Z79.899 Other long term (current) drug therapy
CPT/HCPCS: 36415; 36430; 71045; 80048; 80053; 81001; 82962; 85025; 85610; 85730; 86850; 86900; 86901; 86920; 86921; 86922; 87086; 87088; 87186; 93005; 96360; 99285; A4217; A9270; J0696; J7040; P9016; 99284

== ENCOUNTER 2019-01-06 11:39 | Emergency (ER) | payer MEDICARE, BC ==
[2019-01-06] MEDS ORDERED: Sodium Chloride 0.9% 1,000 ML IV ONE (11:59)
[2019-01-06] MEDS ORDERED: Albuterol/Ipratropium 3.0-0.5 MG/3 ML Neb Soln NEB ONE (12:00)
[2019-01-06 12:47] LABS: CARBON DIOXIDE,CO2 20.4 mmol/L (21.0-32.0); POTASSIUM,K 3.9 mmol/L (3.5-5.1)
--- NOTE | 2019-01-06 12:48 | CR ---
EXAM DATE: 01/06/19 PATIENT'S AGE: 78 Chest: Portable view of the chest was obtained. Comparison: Previous chest x-ray of 07/10/18. Mass is noted within the right upper chest which remains stable from previous exam measuring roughly 2.9 cm in size. Slightly prominent right hilum is seen possibly due to adenopathy. Lungs otherwise are clear. Heart size mediastinum otherwise within normal limits. Bony structures are grossly intact. Impression: 1. 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 Probable right hilar adenopathy. 2. Nothing acute is otherwise seen. Diagnostic code #9 Report Signed by Proxy. [facility]
[2019-01-06] MEDS ORDERED: Aspirin 81 MG Tab.Chew PO ONE (13:07)
--- NOTE | 2019-01-06 13:28 | EDM.PDOC ---
ED HPI GENERAL MEDICAL PROBLEM - General Chief Complaint: Fever Stated Complaint: WEAKNESS Time Seen by Provider: 01/06/19 11:44 Source of Information: Reports: Patient History Limitations: Reports: No Limitations - History of Present Illness INITIAL COMMENTS - FREE TEXT/NARRATIVE: HISTORY AND PHYSICAL: History of present illness: Patient is an 78-year-old female who presents to the ED today from [facility] [place] [facility] for concern of an episode of shortness of breath and weakness. Patient states she is receiving fluids at the cancer center and had a brief few episodes of shortness of breath. Patient states she's had a generalized weakness over the past couple days. Patient has a history of coronary artery stents placed many years ago, lung cancer receiving chemotherapy with last session 1 week ago, and type 2 diabetes. Patient denies any other symptoms or concerns. Patient denies fever, chills, chest pain, or cough. Denies headache, neck stiff ness, change in vision, syncope, or near syncope. Denies nausea, vomiting, abdominal pain, diarrhea, constipation, or dysuria. Has not noted any blood in urine or stool. Patient has been eating and drinking appropriately. Review of systems: As per history of present illness and below otherwise all systems reviewed and negative. Past medical history: As per history of present illness and as reviewed below otherwise noncontributory. Surgical history: As per history of present illness and as reviewed below otherwise noncontributory. Social history: See social history for further information Family history: As per history of present illness and as reviewed below otherwise noncontributory. Physical exam: General: Patient is alert, oriented, and in no acute distress. Patient laying comfortably on exam table. HEENT: Atraumatic, normocephalic, pupils equal and reactive bilaterally, negative for conjunctival pallor or scleral icterus, mucous membranes moist, TMs normal bilaterally, throat clear, neck supple, nontender, trachea midline. No drooling or trismus noted. No meningeal signs. No hot potato voice noted. Lungs: Clear to auscultation, breath sounds equal bilaterally, chest nontender. Heart: S1S2, regular rate and rhythm without overt murmur Abdomen: Soft, nondistended, nontender. Negative for masses or hepatosplenomegaly. Negative for costovertebral tenderness. Pelvis: Stable nontender. Genitourinary: Deferred. Rectal: Deferred. Skin: Intact, warm, dry. No lesions or rashes noted. Extremities: Atraumatic, negative for cords or calf pain. Neurovascular unremarkable. Neuro: Awake, alert, oriented. Cranial nerves II through XII unremarkable. Cerebellum unremarkable. Motor and sensory unremarkable throughout. Exam nonfocal. Notes: Dr. Foreman verbally involved in patient care. Dr. Cosme, [facility], consulted on patient and accepting of transfer. Voices understanding and is agreeable to plan of care. Denies any further questions or concerns at this time. Diagnostics: CBC, CMP, UA, EKG, chest x-ray, troponin, lactate, blood cultures 2, influenza Therapeutics: Saline, aspirin Impression: Acute coronary syndrome Leukocytosis Plan: 1. Transfer to [facility] to Dr. Cosme. Definitive disposition and diagnosis as appropriate pending reevaluation and review of above. Headache Pain Score (Numeric/FACES): 3 - Related Data Allergies Allergy/AdvReac Type Severity Reaction Status Date / Time olmesartan medoxomil Allergy Arrhythmias Verified 01/06/19 11:51 [From Benicar] phenobarbital Allergy Tachycardia Verified 01/06/19 11:51 quinapril Allergy Cough Verified 01/06/19 11:51 tramadol Allergy Cannot Verified 01/06/19 11:51 Remember Home Meds: Home Meds Levothyroxine Sodium 88 mcg PO ACBRK 05/18/14 [History] Pravastatin [Pravachol] 20 mg PO BEDTIME 05/18/14 [History] amLODIPine [Norvasc] 5 mg PO DAILY 05/18/14 [History] metFORMIN HCl [Metformin ER Osmotic] 500 mg PO ACDINNER 05/18/14 [History] Folic Acid 1 mg PO DAILY 08/22/18 [History] Losartan [Cozaar] 100 mg PO DAILY 08/22/18 [History] Aspirin [Ecotrin EC] 325 mg PO DAILY 01/06/19 [History] Clopidogrel Bisulfate [Clopidogrel] 75 mg PO DAILY 01/06/19 [History] Cyclobenzaprine [Flexeril] 10 mg PO DAILY PRN 01/06/19 [History] Famotidine 40 mg PO DAILY PRN 01/06/19 [History] Past Medical History HEENT History: Reports: None Cardiovascular History: Reports: High Cholesterol, Hypertension Respiratory History: Reports: Asthma Gastrointestinal History: Reports: GERD Other Gastrointestinal History: stomach ulcers Genitourinary History: Reports: None 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: Musculoskeletal History: Reports: None Neurological History: Reports: CVA, Migraines Psychiatric History: Reports: None Endocrine/Metabolic History: Reports: Diabetes, Type II, Hypothyroidism Hematologic History: Reports: None Immunologic History: Reports: None Oncologic (Cancer) History: Reports: Lung Other Oncologic History: Start chemotherapy a week from today Dermatologic History: Reports: None - Infectious Disease History Infectious Disease History: Reports: Chicken Pox - Past Surgical History HEENT Surgical History: Reports: Cataract Surgery, Other (See Below) Other HEENT Surgeries/Procedures: wears glasses Cardiovascular Surgical History: Reports: Coronary Artery Stent, Other (See Below) Other Cardiovascular Surgeries/Procedures: has had carotid cleanout Respiratory Surgical History: Reports: Lung Biopsies GI Surgical History: Reports: None Female Surgical History: Reports: Hysterectomy Endocrine Surgical History: Reports: None Neurological Surgical History: Reports: None Musculoskeletal Surgical History: Reports: None Oncologic Surgical History: Reports: None Dermatological Surgical History: Reports: None Social & Family History - Family History Family Medical History: Noncontributory - Tobacco Use Smoking Status *Q: Former Smoker Used Tobacco, but Quit: Yes Month/Year Tobacco Last Used: 10 years - Caffeine Use Caffeine Use: Reports: Coffee, Soda - Recreational Drug Use Recreational Drug Use: No ED ROS GENERAL - Review of Systems Review Of Systems: Comprehensive ROS is negative, except as noted in HPI. ED EXAM, GENERAL - Physical Exam Exam: See Below (See dictation) Course - Vital Signs Last Recorded V/S: Last Vital Signs Temp 98.4 F 01/06/19 11:48 Pulse 131 H 01/06/19 11:48 Resp 18 01/06/19 11:48 BP 113/59 L 01/06/19 11:48 Pulse Ox 98 01/06/19 12:11 - Orders/Labs/Meds Orders: Active Orders 24 hr Category Date Time Status EKG Documentation Completion [RC] STAT Care 01/06/19 11:45 Active EKG Documentation Completion [RC] STAT Care 01/06/19 13:11 Active RT Aerosol Therapy [RC] ASDIRECTED Care 01/06/19 12:00 Active CULTURE BLOOD [BC] Stat Lab 01/06/19 11:54 Received CULTURE BLOOD [BC] Stat Lab 01/06/19 12:20 Received CULTURE URINE [RM] Stat Lab 01/06/19 12:41 Received Blood Culture x2 Reflex Set [OM.PC] Stat Oth 01/06/19 11:45 Ordered Labs: Laboratory Tests 01/06/19 01/06/19 01/06/19 Range/Units 11:54 11:54 11:54 WBC 20.38 H (4.0-11.0) K/uL RBC 3.17 L (4.30-5.90) M/uL Hgb 9.6 L (12.0-16.0) g/dL Hct 29.3 L (36.0-46.0) % MCV 92.4 (80.0-98.0) fL MCH 30.3 (27.0-32.0) pg MCHC 32.8 (31.0-37.0) g/dL RDW Std Deviation 71.7 H (28.0-62.0) fl RDW Coeff of Keny 22 H (11.0-15.0) % Plt Count 262 (150-400) K/uL MPV 10.20 (7.40-12.00) fL Neut % (Auto) 81.4 H (48.0-80.0) % Lymph % (Auto) 18.1 (16.0-40.0) % [place] % (Auto) 0.3 (0.0-15.0) % Eos % (Auto) 0.1 (0.0-7.0) % Baso % (Auto) 0.1 (0.0-1.5) % Neut # (Auto) 16.6 H (1.4-5.7) K/uL Lymph # (Auto) 3.7 H (0.6-2.4) K/uL [place] # (Auto) 0.1 (0.0-0.8) K/uL Eos # (Auto) 0.0 (0.0-0.7) K/uL Baso # (Auto) 0.0 (0.0-0.1) K/uL Nucleated RBC % 0.0 /100WBC Nucleated RBCs # 0 K/uL Lactate 2.2 H* (0.20-2.00) mmol/L Sodium 131 L (136-145) mmol/L Potassium 3.9 (3.5-5.1) mmol/L Chloride 97 L (98-107) mmol/L Carbon Dioxide 20.4 L (21.0-32.0) mmol/L BUN 19 H (7.0-18.0) mg/dL Creatinine 1.1 H (0.6-1.0) mg/dL Est Cr Clr Drug Dosing 32.26 mL/min Estimated GFR (MDRD) 47.8 ml/min Glucose 119 H (74-106) mg/dL Calcium 8.0 L (8.5-10.1) mg/dL Total Bilirubin 1.3 H (0.2-1.0) mg/dL AST 36 (15-37) IU/L ALT 18 (14-63) IU/L Alkaline Phosphatase 75 (46-116) U/L Troponin I (0.000-0.056) ng/mL Total Protein 7.0 (6.4-8.2) g/dL Albumin 2.7 L (3.4-5.0) g/dL Globulin 4.3 H (2.6-4.0) g/dL Albumin/Globulin Ratio 0.6 L (0.9-1.6) Urine Color Urine Appearance Urine pH (5.0-8.0) Ur Specific [place] (1.001-1.035) Urine Protein (NEGATIVE) mg/dL Urine Glucose (UA) (NEGATIVE) mg/dL Urine Ketones (NEGATIVE) mg/dL Urine Occult Blood (NEGATIVE) Urine Nitrite (NEGATIVE) Urine Bilirubin (NEGATIVE) Urine Urobilinogen (<2.0) EU/dL Ur Leukocyte Esterase (NEGATIVE) Urine RBC (0-2/HPF) Urine WBC (0-5/HPF) Ur Epithelial Cells (NONE-FEW) Amorphous Sediment (NEGATIVE) Urine Bacteria (NEGATIVE) Hyaline Casts (0-2/LPF) Urine Mucus (NONE-MOD) 01/06/19 01/06/19 Range/Units 11:54 12:41 WBC (4.0-11.0) K/uL RBC (4.30-5.90) M/uL Hgb (12.0-16.0) g/dL Hct (36.0-46.0) % MCV (80.0-98.0) fL MCH (27.0-32.0) pg MCHC (31.0-37.0) g/dL RDW Std Deviation (28.0-62.0) fl RDW Coeff of Keny (11.0-15.0) % Plt Count (150-400) K/uL MPV (7.40-12.00) fL Neut % (Auto) (48.0-80.0) % Lymph % (Auto) (16.0-40.0) % [place] % (Auto) (0.0-15.0) % Eos % (Auto) (0.0-7.0) % Baso % (Auto) (0.0-1.5) % Neut # (Auto) (1.4-5.7) K/uL Lymph # (Auto) (0.6-2.4) K/uL [place] # (Auto) (0.0-0.8) K/uL Eos # (Auto) (0.0-0.7) K/uL Baso # (Auto) (0.0-0.1) K/uL Nucleated RBC % /100WBC Nucleated RBCs # K/uL Lactate (0.20-2.00) mmol/L Sodium (136-145) mmol/L Potassium (3.5-5.1) mmol/L Chloride (98-107) mmol/L Carbon Dioxide (21.0-32.0) mmol/L BUN (7.0-18.0) mg/dL Creatinine (0.6-1.0) mg/dL Est Cr Clr Drug Dosing mL/min Estimated GFR (MDRD) ml/min Glucose (74-106) mg/dL Calcium (8.5-10.1) mg/dL Total Bilirubin (0.2-1.0) mg/dL AST (15-37) IU/L ALT (14-63) IU/L Alkaline Phosphatase (46-116) U/L Troponin I 2.508 H* (0.000-0.056) ng/mL Total Protein (6.4-8.2) g/dL Albumin (3.4-5.0) g/dL Globulin (2.6-4.0) g/dL Albumin/Globulin Ratio (0.9-1.6) Urine Color YELLOW Urine Appearance HAZY Urine pH 6.0 (5.0-8.0) Ur Specific [place] 1.020 (1.001-1.035) Urine Protein TRACE H (NEGATIVE) mg/dL Urine Glucose (UA) NEGATIVE (NEGATIVE) mg/dL Urine Ketones NEGATIVE (NEGATIVE) mg/dL Urine Occult Blood NEGATIVE (NEGATIVE) Urine Nitrite NEGATIVE (NEGATIVE) Urine Bilirubin NEGATIVE (NEGATIVE) Urine Urobilinogen 0.2 (<2.0) EU/dL Ur Leukocyte Esterase SMALL H (NEGATIVE) Urine RBC 0-2 (0-2/HPF) Urine WBC 8-10 (0-5/HPF) Ur Epithelial Cells MODERATE (NONE-FEW) Amorphous Sediment LIGHT (NEGATIVE) Urine Bacteria FEW (NEGATIVE) Hyaline Casts 0-2 (0-2/LPF) Urine Mucus LIGHT (NONE-MOD) Meds: Medications Discontinued Medications Generic Name Dose Route Start Last Admin Trade Name Freq PRN Reason Stop Dose Admin Albuterol/Ipratropium 3 ml 01/06/19 12:00 01/06/19 12:06 Duoneb 3.0-0.5 Mg/3 Ml NEB 01/06/19 12:01 3 ml ONETIME ONE Administration Aspirin 324 mg 01/06/19 13:07 01/06/19 13:16 Aspirin PO 01/06/19 13:08 243 mg ONETIME ONE Administration Sodium Chloride 1,000 mls @ 999 mls/hr 01/06/19 11:59 01/06/19 12:09 Normal Saline IV 01/06/19 12:59 999 mls/hr STAT ONE Administration Departure - Departure Time of Disposition: 13:28 Disposition: DC/Tfer to [facility] 02 Clinical Impression: Acute coronary syndrome Leukocytosis Qualifiers: Leukocytosis type: unspecified Qualified Code(s): D72.829 - Elevated white blood cell count, unspecified - Discharge Information Referrals: PCP,Unknown [Ordering Only Provider] - Forms: ED Department Discharge - My Orders Last 24 Hours: My Active Orders 01/06/19 11:45 EKG Documentation Completion [RC] STAT Blood Culture x2 Reflex Set [OM.PC] Stat 01/06/19 11:54 CULTURE BLOOD [BC] Stat 01/06/19 12:00 RT Aerosol Therapy [RC] ASDIRECTED 01/06/19 12:20 CULTURE BLOOD [BC] Stat 01/06/19 12:41 CULTURE URINE [RM] Stat 01/06/19 13:11 EKG Documentation Completion [RC] STAT - Assessment/Plan Last 24 Hours: My Active Orders 01/06/19 11:45 EKG Documentation Completion [RC] STAT Blood Culture x2 Reflex Set [OM.PC] Stat 01/06/19 11:54 CULTURE BLOOD [BC] Stat 01/06/19 12:00 RT Aerosol Therapy [RC] ASDIRECTED 01/06/19 12:20 CULTURE BLOOD [BC] Stat 01/06/19 12:41 CULTURE URINE [RM] Stat 01/06/19 13:11 EKG Documentation Completion [RC] STAT
[2019-01-06] MEDS ORDERED: Acetaminophen 500 MG Tab PO ONE (15:38)
[2019-01-06] MEDS ORDERED: Acetaminophen 500 MG Tab ONE (15:38)
[2019-01-06 18:08] VITALS: BP 94/50; PULSE 86
== END 2019-01-06 15:45 ==
LOC: MW.ED 11:39
DX: I24.9 Acute ischemic heart disease, unspecified (principal); I10 Essential (primary) hypertension; D72.829 Elevated white blood cell count, unspecified; E78.5 Hyperlipidemia, unspecified; J45.909 Unspecified asthma, uncomplicated; K21.9 Gastro-esophageal reflux disease without esophagitis; E11.9 Type 2 diabetes mellitus without complications; E03.9 Hypothyroidism, unspecified; Z86.73 Personal history of transient ischemic attack (TIA), and cerebral infarction without residual deficits; Z88.8 Allergy status to other drugs, medicaments and biological substances; Z79.01 Long term (current) use of anticoagulants; Z88.5 Allergy status to narcotic agent; Z87.891 Personal history of nicotine dependence; Z79.82 Long term (current) use of aspirin; Z79.84 Long term (current) use of oral hypoglycemic drugs; Z79.890 Hormone replacement therapy; Z79.899 Other long term (current) drug therapy
CPT/HCPCS: 36415; 71045; 80053; 81001; 83605; 84484; 85025; 87040; 87086; 87804; 93005; 94640; 96360; 99285; A9270; J7040; J7620-GY